=== PATIENT | female | born 1990 | race Caucasian/White ===

== ENCOUNTER 2021-03-04 17:40 | Emergency (ER) | payer OTHER ==
[~2021-03-04] VITALS: Ht 152.4 cm; Wt 63.6 kg
[2021-03-04 17:49] VITALS: TEMP 98.3
[2021-03-04 18:20] LABS: BASO # 0.1 K/mm3 (0.0-0.2); BASO % 0.9 % (0.0-2.0); EOS # 0.2 K/mm3 (0.0-0.7); EOS % 2.4 % (0.0-4.0); GRAN # 3.9 K/mm3 (1.4-6.5); GRAN % 43.6 % (42.2-75.2); HEMOGLOBIN 12.2 g/dl (12.5-16.0); LYMPH # 4.1 K/mm3 (1.2-3.4); MEAN CELL VOLUME 87 fl (80.0-100.0); MEAN CORPUSCULAR HEMOGLOBIN 29 pg (27-31); MEAN CORPUSCULAR HGB CONC 33 g/dl (33.0-37.0); MEAN PLATELET VOLUME 10.3 fl (7.4-10.4); MONO # 0.6 K/mm3 (0.1-0.6); MONO % 6.9 % (1.7-9.3); PLATELET COUNT 298 K/mm3 (130-400); RED BLOOD COUNT 4.22 M/mm3 (4.10-5.30); REDCELL DISTRIBUTION WIDTH-CV 13.5 % (11.5-14.5)
[2021-03-04 18:21] LABS: HEMATOCRIT 36.6 % (37.0-47.0)
[2021-03-04 18:38] LABS: ALANINE AMINOTRANSFERASE 11 U/L (0-55); ALBUMIN 3.9 gm/dL (3.5-5.0); ALKALINE PHOSPHATASE 59 U/L (40-150); ANION GAP 12 mmol/L (7-16); AST,SGOT 17 U/L (5-34); BILIRUBIN,TOTAL 0.3 mg/dL (0.2-1.2); BLOOD UREA NITROGEN 14 mg/dL (7-19); CARBON DIOXIDE 21 mmol/L (22-29); CHLORIDE 105 mmol/L (98-107); GLUCOSE 103 mg/dL (70-99); POTASSIUM 3.7 mmol/L (3.5-4.5); SODIUM 138 mmol/L (136-145); TOTAL PROTEIN 7.9 gm/dL (6.2-8.1)
[2021-03-04 18:43] LABS: TROPONIN-I < 0.010 ng/mL (0.00-0.033)
[2021-03-04 20:37] VITALS: BP 116/73; PULSE 83
== END 2021-03-04 20:47 | disposition home or self-care (01) ==
LOC: COL.ER 17:40
PROVIDERS: Physician Assistant
DX: R00.2 Palpitations (principal)